=== PATIENT | male | born 1990 | race Caucasian/White ===

== ENCOUNTER 2024-01-02 19:00 | Emergency (ER) | payer OTHER ==
[~2024-01-02] VITALS: Ht 177.8 cm; Wt 69.9 kg
[~2024-01-02 19:00] MED LIST: ALPRAZOLAM0.5 M3 PO; ANAPROX DS550 MG PO; ARTHROTEC50 MG PO; CLINDAMYCIN HC300 MG PO; DIFLUCAN150 MG PO; REXULTI1 MG PO; SERTRALINE HYDR50 MG PO; ULTRAM50 MG PO; ZOLOFT50 MG PO
[2024-01-02] MEDS ORDERED: hydrOXYzine pamoate 25 MG CAP PO ONE (19:40)
[2024-01-02] MEDS ORDERED: Lidocaine Hydrochloride 2 ML AMP SC ONE (19:40)
[2024-01-02] MEDS ORDERED: Tdap Vaccine 0.5 ML SYR (Adult Vaccine) IM ONE (19:40)
== END 2024-01-02 20:37 | disposition home or self-care (01) ==
LOC: ED 19:00
DX: S61.411A Laceration without foreign body of right hand, initial encounter (principal); J45.909 Unspecified asthma, uncomplicated; F41.9 Anxiety disorder, unspecified; F32.A Depression, unspecified; Z88.8 Allergy status to other drugs, medicaments and biological substances; Z98.890 Other specified postprocedural states; W26.0XXA Contact with knife, initial encounter; Y93.89 Activity, other specified; Y92.009 Unspecified place in unspecified non-institutional (private) residence as the place of occurrence of the external cause; Y99.8 Other external cause status

== ENCOUNTER 2025-04-28 16:40 | Emergency (ER) | payer OTHER ==
[~2025-04-28] VITALS: Wt 72.6 kg
[2025-04-28 17:00] LABS: BASO # 0.1 10*3/uL (0.0-0.1); BASO % 0.3 % (0.0-1.0); EOS # 0.1 10*3/uL (0.0-0.4); EOS % 0.4 % (1.0-4.0); MEAN CELL VOLUME 82.3 fl (80.0-94.0); MEAN CORPUSCULAR HGB 26.8 pg (27.0-31.0); MEAN PLATELET VOLUME 8.6 fl (9.6-12.3); MONO # 1.1 10*3/uL (0.1-1.0); MONO % 6.8 % (3.0-9.0); NEUT # 12.8 10*3/uL (2.3-7.9); NEUT % 80.7 % (47.0-73.0); NUCLEATED RED BLOOD CELL 0.0 % (0.0-0.0); NUCLEATED RED BLOOD CELL 0.0 10*3/uL (0.0-0.0); PLATELET COUNT AUTOMATED 278 10*3/uL (130-400); RED CELL DISTRI WIDTH 13.8 % (0-14.5)
[2025-04-28 17:10] LABS: URINE AMPHETAMINES Negative (1000ng/ml); URINE BARBITURATES Negative (200ng/ml); URINE BENZODIAZEPINES Negative (200ng/ml); URINE CANNABINOIDS (THC) Positive (50ng/ml); URINE COCAINE Negative (300ng/ml); URINE METHADONE Negative (300ng/ml); URINE OPIATES Negative (300ng/ml); URINE PHENCYCLIDINE Negative (25ng/ml)
[2025-04-28 17:17] LABS: BILIRUBIN Negative (Negative); BLOOD Negative (Negative); CLARITY Clear (Clear); COLOR Yellow (Yellow); KETONE Negative (Negative); LEUKO ESTERASE Negative (Negative); NITRITE Negative (Negative); PH 6.5 (4.5-8.0); SPECIFIC GRAVITY 1.015 (1.001-1.030); UROBILINOGEN 0.2 E.U./dl (0.0-1.0)
[2025-04-28 17:21] LABS: BUN 10 mg/dl (9-23); ETHYL ALCOHOL 140.8 mg/dl (<3)
[2025-04-28 17:29] LABS: BACTERIA 2+; EPITHELIAL CELLS 0-2; RBC 0-2 rbc/hpf (0-2); WBC 0-2 wbc/hpf (0-5)
[2025-04-28] MEDS ORDERED: LORazepam 1 MG TAB PO ONE (22:50)
[2025-04-28] MEDS ORDERED: ATIVAN0.5 MG PO (22:54)
[2025-04-28] MEDS ORDERED: LITHIUM CARBON150 MG PO (22:54)
[2025-04-28] MEDS ORDERED: ONDANSETRON HYDR4 MG PO (22:55)
[2025-04-28] MEDS ORDERED: OLANZAPINE5 MG PO (22:56)
[2025-04-28] MEDS ORDERED: PROPRANOLOL HCL20 MG PO (22:58)
[2025-04-28] MEDS ORDERED: BUSPAR15 MG PO (23:01)
[2025-04-28] MEDS ORDERED: HALOPERIDOL1 MG PO (23:02)
== END 2025-04-29 02:45 ==
LOC: ED 16:40
PROVIDERS: Emergency Medicine
DX: F25.9 Schizoaffective disorder, unspecified (principal); Z88.8 Allergy status to other drugs, medicaments and biological substances; Z98.890 Other specified postprocedural states